=== PATIENT | female | born 1980 | race Caucasian/White ===

== ENCOUNTER 2022-03-14 04:10 | Day surgery (SDC) | payer OTHER ==
[2022-03-10 10:36] VITALS: BMI 39.0
[2022-03-14] MEDS ORDERED: IBUPROFEN 400 MG TABLET (FP) PO PRN (07:20)
[2022-03-14] MEDS ORDERED: ACETAMINOPHEN 325 MG TABLET (FP) PO PRN (07:20)
[2022-03-14] MEDS ORDERED: DEXAMETHASONE SOD PHOSPHATE 4 MG/1 ML VIAL ONE (09:28)
[2022-03-14] MEDS ORDERED: ONDANSETRON 4 MG/2 ML VIAL ONE (09:28)
[2022-03-14] MEDS ORDERED: KETOROLAC TROMETHAMINE 30 MG/1 ML VIAL ONE (09:28)
[2022-03-14] MEDS ORDERED: PROPOFOL 40 ML ONE (09:29)
[2022-03-14] MEDS ORDERED: ROCURONIUM BROMIDE 50 MG/5 ML SYRINGE ONE (09:30)
[2022-03-14] MEDS ORDERED: MIDAZOLAM HCL 2 MG/2 ML SINGLE DOSE VIAL ONE (09:30)
[2022-03-14] MEDS ORDERED: ONDANSETRON 4 MG/2 ML VIAL IVPUSH PRN (09:50)
[2022-03-14] MEDS ORDERED: oxyCODONE HCL 5 MG TABLET PO PRN ×2 (09:50)
[2022-03-14] MEDS ORDERED: CLINDAMYCIN 600MG PREMIX IVPB 600 MG/50 ML BAG IVPB ONE (10:00)
[2022-03-14] MEDS ORDERED: LACTATED RINGERS SOLUTION 1,000 ML IV SCH (10:00)
[2022-03-14] MEDS ORDERED: BUPIVACAINE HCL/PF 0.5% (5MG/ML) 10 ML VIAL ONE (10:14)
[2022-03-14] MEDS ORDERED: CLINDAMYCIN 600 MG PREMIX BAG IVPB ONE (10:15)
[2022-03-14] MEDS ORDERED: NEOSTIGMINE METHYLSULFATE 0.5 MG/ML - 10 ML MDV ONE (10:21)
[2022-03-14] MEDS ORDERED: BUPIVACAINE HCL/PF 0.5% (5MG/ML) 10 ML VIAL IJ ONE (10:34)
[2022-03-14 12:31] VITALS: RESP 20
[2022-03-14 15:34] VITALS: BP 140/82; PULSE 78; TEMP 97.3
== END 2022-03-14 14:40 | disposition home or self-care (01) ==
LOC: JASU-SURG 04:10
PROVIDERS: ATTEND Obstetrics & Gynecology
PROC: 0UT74ZZ Resection of Bilateral Fallopian Tubes, Percutaneous Endoscopic Approach (ICD-10-PCS; principal; 2022-03-14 10:30)
PROC: 0UB98ZZ Excision of Uterus, Via Natural or Artificial Opening Endoscopic (ICD-10-PCS; 2022-03-14 10:30)
PROC: 0UDB8ZX Extraction of Endometrium, Via Natural or Artificial Opening Endoscopic, Diagnostic (ICD-10-PCS; 2022-03-14 10:30)
DX: Z30.2 Encounter for sterilization (principal); D25.0 Submucous leiomyoma of uterus
CPT/HCPCS: 81025; 88302-TC; 88305-TC; 94760

== ENCOUNTER 2022-11-28 10:00 | Inpatient (IN) | payer OTHER ==
[2022-11-28 10:15] VITALS: BMI 39.2
[2022-11-28] MEDS ORDERED: DEXAMETHASONE SOD PHOSPHATE 10 MG/1 ML VIAL IVPUSH ONE (10:30)
[2022-11-28] MEDS ORDERED: ALBUTEROL SO4 2.5/IPRATROPIUM 0.5 INH SOL 3 ML VIAL.NEB. NEB ONE ×3 (10:30→23:15)
[2022-11-28] MEDS ORDERED: DEXAMETHASONE SOD PHOSPHATE 10 MG/1 ML VIAL ONE (10:39)
[2022-11-28 10:49] LABS: HEMATOCRIT 25.4 % (32.4-45.2); HEMOGLOBIN 7.3 GM/dL (10.7-15.3); MCHC 28.7 g/dl (32.0-36.0); MEAN CELL VOLUME 57.3 fl (80-96); PLATELET COUNT 276 10^3/uL (134-434); RBC 4.44 M/mm3 (3.60-5.2); WHITE BLOOD COUNT 7.9 K/mm3 (4.0-10.0)
[2022-11-28 10:50] LABS: MCH 16.5 pg (25.7-33.7)
[2022-11-28 10:52] LABS: VENOUS BASE EXCESS -1.2 mmol/L (-2-2); VENOUS O2 SATURATION 51.6 % (70-80); VENOUS PCO2 44.8 mmHg (38-52); VENOUS PH 7.354 (7.310-7.410)
[2022-11-28 10:57] LABS: INR 1.37 (0.83-1.09); PROTHROMBIN TIME (PATIENT) 15.8 SEC (9.7-13.0)
[2022-11-28 11:00] LABS: ACTIVATED PTT 29.7 SECONDS (25.2-36.5)
[2022-11-28 11:11] LABS: POTASSIUM 3.3 mmol/L (3.5-5.1)
[2022-11-28 11:13] LABS: CALCIUM 8.6 mg/dL (8.5-10.1)
[2022-11-28 11:14] LABS: ALBUMIN 2.8 g/dl (3.4-5.0); BLOOD UREA NITROGEN 20.5 mg/dL (7-18)
[2022-11-28 11:18] LABS: BILIRUBIN,TOTAL 0.7 mg/dL (0.2-1); TOT PROT 6.6 g/dl (6.4-8.2)
[2022-11-28 11:35] LABS: ANISOCYTOSIS 3+; MACROCYTOSIS 0; OVALOCYTE 1+; TEAR DROP CELLS 1+
[2022-11-28] MEDS ORDERED: POTASSIUM CHLORIDE TABS 20 MEQ TABLET.ER (FP) PO ONE ×2 (13:44→13:48)
[2022-11-28] MEDS: guaiFENesin/D-M SUGAR-FREE/ACLHOL-FREE (200 MG/10 MG) 5 ML PO PRN (20:04)
[2022-11-28] MEDS: OSELTAMIVIR PHOSPHATE 75 MG CAPSULE PO SCH (21:04)
[2022-11-28] MEDS: ALBUTEROL SULFATE 0.021% (0.63 MG/3 ML) VIAL.NEB NEB PRN (23:21)
[2022-11-29] MEDS: guaiFENesin/D-M SUGAR-FREE/ACLHOL-FREE (200 MG/10 MG) 5 ML PO PRN ×3 (02:45→21:07)
[2022-11-29 07:55] LABS: BASO % 0.2 % (0-2.0); HEMATOCRIT 28.1 % (32.4-45.2); HEMOGLOBIN 8.3 GM/dL (10.7-15.3); LYMPH % 7.9 % (8-40); MCHC 29.6 g/dl (32.0-36.0); MEAN CELL VOLUME 61.4 fl (80-96); MEAN PLT VOLUME 8.2 fl (7.5-11.1); MONO % 8.4 % (3.8-10.2); NEUT % 83.5 % (42.8-82.8); PLATELET COUNT 306 10^3/uL (134-434); RBC 4.57 M/mm3 (3.60-5.2); RDW 25.7 % (11.6-15.6); WHITE BLOOD COUNT 10.3 K/mm3 (4.0-10.0)
[2022-11-29 08:02] LABS: MCH 18.2 pg (25.7-33.7)
[2022-11-29 08:10] LABS: POTASSIUM 4.7 mmol/L (3.5-5.1)
[2022-11-29 08:18] LABS: ALBUMIN 2.6 g/dl (3.4-5.0); CALCIUM 9.1 mg/dL (8.5-10.1)
[2022-11-29 08:19] LABS: BLOOD UREA NITROGEN 16.2 mg/dL (7-18); CREATININE 0.7 mg/dL (0.55-1.3); PHOSPHOROUS 3.4 mg/dL (2.5-4.9)
[2022-11-29 08:21] LABS: BILIRUBIN,TOTAL 0.5 mg/dL (0.2-1)
[2022-11-29 08:22] LABS: TOT PROT 6.6 g/dl (6.4-8.2)
[2022-11-29] MEDS ORDERED: IRON SUCROSE INJECTION 200 MG in SODIUM CHLORIDE 90 ML IVPB ONE (10:00)
[2022-11-29] MEDS: OSELTAMIVIR PHOSPHATE 75 MG CAPSULE PO SCH ×2 (10:30→21:06)
[2022-11-29] MEDS: levoFLOXacin 750 MG TABLET PO SCH (10:30)
[2022-11-29] MEDS ORDERED: CODEINE SO4 30 MG TABLET PO PRN (12:43)
[2022-11-29] MEDS: CODEINE SO4 30 MG TABLET PO PRN ×2 (16:11→21:07)
[2022-11-29] MEDS ORDERED: ALBUTEROL SO4 2.5/IPRATROPIUM 0.5 INH SOL 3 ML VIAL.NEB. NEB ONE (19:50)
[2022-11-29] MEDS: ALBUTEROL SULFATE 0.021% (0.63 MG/3 ML) VIAL.NEB NEB PRN (20:17)
[2022-11-29] MEDS: INSULIN SLIDING SCALE (NOVOLOG) 1 VIAL SQ SCH (21:42)
[2022-11-30] MEDS: guaiFENesin/D-M SUGAR-FREE/ACLHOL-FREE (200 MG/10 MG) 5 ML PO PRN ×2 (06:12→12:27)
[2022-11-30] MEDS: CODEINE SO4 30 MG TABLET PO PRN ×3 (06:12→19:51)
[2022-11-30] MEDS: INSULIN SLIDING SCALE (NOVOLOG) 1 VIAL SQ SCH ×4 (06:19→21:03)
[2022-11-30 07:46] LABS: BASO % 0.1 % (0-2.0); HEMATOCRIT 26.7 % (32.4-45.2); LYMPH % 21.2 % (8-40); MEAN CELL VOLUME 60.5 fl (80-96); MEAN PLT VOLUME 8.2 fl (7.5-11.1); MONO % 8.6 % (3.8-10.2); NEUT % 70.1 % (42.8-82.8); PLATELET COUNT 292 10^3/uL (134-434); RBC 4.41 M/mm3 (3.60-5.2); RDW 23.6 % (11.6-15.6); WHITE BLOOD COUNT 8.3 K/mm3 (4.0-10.0)
[2022-11-30 08:04] LABS: CALCIUM 8.6 mg/dL (8.5-10.1)
[2022-11-30 08:05] LABS: ALBUMIN 2.3 g/dl (3.4-5.0); BLOOD UREA NITROGEN 16.7 mg/dL (7-18)
[2022-11-30 08:08] LABS: CREATININE 0.7 mg/dL (0.55-1.3)
[2022-11-30 08:10] LABS: BILIRUBIN,TOTAL 0.5 mg/dL (0.2-1)
[2022-11-30 08:19] LABS: MCH 18.2 pg (25.7-33.7)
[2022-11-30] MEDS: OSELTAMIVIR PHOSPHATE 75 MG CAPSULE PO SCH ×2 (09:26→21:02)
[2022-11-30] MEDS: DOCUSATE SODIUM 100 MG CAPSULE (FP) PO SCH (09:26)
[2022-11-30] MEDS: levoFLOXacin 750 MG TABLET PO SCH (09:26)
[2022-11-30] MEDS ORDERED: FAMOTIDINE 20 MG TABLET PO ONE (14:05)
[2022-11-30 16:19] LABS: EPI CELLS 18 /uL (0-25.1); HYALINE CASTS 1 /uL (0-3.1); URINE APPEARANCE CLEAR; URINE BACTERIA 76 /uL (0-1359); URINE BILIRUBIN NEGATIVE (NEGATIVE); URINE COLOR YELLOW; URINE GLUCOSE (UA) NEGATIVE (NEGATIVE); URINE KETONE NEGATIVE (NEGATIVE); URINE LEUK ESTERASE NEGATIVE (NEGATIVE); URINE NITRITE NEGATIVE (NEGATIVE); URINE PROTEIN 2+ (NEGATIVE); URINE RBC 22 /uL (0-23.9); URINE WBC 26 /uL (0-25.8)
[2022-12-01] MEDS: CODEINE SO4 30 MG TABLET PO PRN ×3 (06:11→17:45)
[2022-12-01] MEDS: guaiFENesin/D-M SUGAR-FREE/ACLHOL-FREE (200 MG/10 MG) 5 ML PO PRN ×3 (06:11→17:45)
[2022-12-01] MEDS: INSULIN SLIDING SCALE (NOVOLOG) 1 VIAL SQ SCH ×4 (06:17→21:25)
[2022-12-01 07:26] LABS: HEMATOCRIT 25.9 % (32.4-45.2); MCHC 30.8 g/dl (32.0-36.0); MEAN CELL VOLUME 59.6 fl (80-96); MEAN PLT VOLUME 7.7 fl (7.5-11.1); PLATELET COUNT 302 10^3/uL (134-434); RBC 4.35 M/mm3 (3.60-5.2); RDW 22.4 % (11.6-15.6); WHITE BLOOD COUNT 4.6 K/mm3 (4.0-10.0)
[2022-12-01 07:40] LABS: MCH 18.3 pg (25.7-33.7)
[2022-12-01 07:52] LABS: POTASSIUM 3.9 mmol/L (3.5-5.1)
[2022-12-01 07:59] LABS: BLOOD UREA NITROGEN 12.3 mg/dL (7-18)
[2022-12-01 08:02] LABS: CALCIUM 8.3 mg/dL (8.5-10.1); CREATININE 0.6 mg/dL (0.55-1.3)
[2022-12-01] MEDS: OSELTAMIVIR PHOSPHATE 75 MG CAPSULE PO SCH ×2 (09:38→21:26)
[2022-12-01] MEDS: DOCUSATE SODIUM 100 MG CAPSULE (FP) PO SCH (09:38)
[2022-12-01] MEDS: levoFLOXacin 750 MG TABLET PO SCH (09:38)
[2022-12-01] MEDS ORDERED: LISINOPRIL 10 MG TABLET PO SCH (10:00)
[2022-12-01] MEDS ORDERED: diphenhydrAMINE HCL 25 MG CAPSULE (FP) PO PRN (15:26)
[2022-12-01] MEDS: FLUTICASONE PROP 0.05% 16 GM NASAL SPRAY NS SCH (21:28)
[2022-12-02] MEDS: INSULIN SLIDING SCALE (NOVOLOG) 1 VIAL SQ SCH ×4 (06:08→21:44)
[2022-12-02 07:04] LABS: BLOOD UREA NITROGEN 8.5 mg/dL (7-18); CALCIUM 7.9 mg/dL (8.5-10.1); POTASSIUM 3.6 mmol/L (3.5-5.1)
[2022-12-02 07:07] LABS: THYROID STIM IMMUNOGLOBULIN <0.10 IU/L (0.00-0.55)
[2022-12-02 07:08] LABS: CREATININE 0.6 mg/dL (0.55-1.3)
[2022-12-02] MEDS: OSELTAMIVIR PHOSPHATE 75 MG CAPSULE PO SCH ×2 (10:41→21:39)
[2022-12-02] MEDS: levoFLOXacin 750 MG TABLET PO SCH (10:41)
[2022-12-02] MEDS: DOCUSATE SODIUM 100 MG CAPSULE (FP) PO SCH (10:41)
[2022-12-02] MEDS: guaiFENesin/D-M SUGAR-FREE/ACLHOL-FREE (200 MG/10 MG) 5 ML PO PRN (10:42)
[2022-12-02] MEDS: FLUTICASONE PROP 0.05% 16 GM NASAL SPRAY NS SCH ×2 (10:42→21:38)
[2022-12-02] MEDS: ALBUTEROL SO4 2.5/IPRATROPIUM 0.5 INH SOL 3 ML VIAL.NEB. NEB SCH ×2 (15:10→20:31)
[2022-12-02] MEDS ORDERED: INSULIN SLIDING SCALE (NOVOLOG) 1 VIAL SQ ONE (17:30)
[2022-12-02] MEDS: CODEINE SO4 30 MG TABLET PO PRN (21:39)
[2022-12-03] MEDS: INSULIN SLIDING SCALE (NOVOLOG) 1 VIAL SQ SCH ×2 (06:13→11:28)
[2022-12-03 07:10] LABS: HEMOGLOBIN 8.5 GM/dL (10.7-15.3); MCHC 30.3 g/dl (32.0-36.0); MEAN CELL VOLUME 60.7 fl (80-96); PLATELET COUNT 391 10^3/uL (134-434); RBC 4.62 M/mm3 (3.60-5.2); RDW 26.1 % (11.6-15.6); WHITE BLOOD COUNT 5.8 K/mm3 (4.0-10.0)
[2022-12-03 07:16] LABS: MCH 18.4 pg (25.7-33.7)
[2022-12-03 07:37] LABS: POTASSIUM 3.9 mmol/L (3.5-5.1)
[2022-12-03 07:40] LABS: BLOOD UREA NITROGEN 7.2 mg/dL (7-18); CALCIUM 8.2 mg/dL (8.5-10.1)
[2022-12-03 07:43] LABS: CREATININE 0.6 mg/dL (0.55-1.3)
[2022-12-03] MEDS: ALBUTEROL SO4 2.5/IPRATROPIUM 0.5 INH SOL 3 ML VIAL.NEB. NEB SCH ×2 (08:23→12:17)
[2022-12-03] MEDS: FLUTICASONE PROP 0.05% 16 GM NASAL SPRAY NS SCH (09:46)
[2022-12-03] MEDS: OSELTAMIVIR PHOSPHATE 75 MG CAPSULE PO SCH (09:46)
[2022-12-03] MEDS: guaiFENesin/D-M SUGAR-FREE/ACLHOL-FREE (200 MG/10 MG) 5 ML PO PRN (09:46)
[2022-12-03] MEDS: DOCUSATE SODIUM 100 MG CAPSULE (FP) PO SCH (09:46)
[2022-12-03] MEDS ORDERED: ENOXAPARIN NA (PORCINE) 40 MG/0.4 ML DISP.SYRIN SQ SCH (10:00)
[2022-12-03 10:56] VITALS: BP 136/83; RESP 18; TEMP 97.8
[2022-12-03 12:23] VITALS: PULSE 107
== END 2022-12-03 14:30 | disposition home or self-care (01) | DRG 139 ==
LOC: JER 10:00 → JERBED 11:05 → J4S 15:32
PROVIDERS: ADMIT Internal Medicine; ATTEND Internal Medicine
PROC: 30233N1 Transfusion of Nonautologous Red Blood Cells into Peripheral Vein, Percutaneous Approach (ICD-10-PCS; principal; 2022-11-28)
DX: J10.00 Influenza due to other identified influenza virus with unspecified type of pneumonia (principal); J96.01 Acute respiratory failure with hypoxia; D50.9 Iron deficiency anemia, unspecified; K80.20 Calculus of gallbladder without cholecystitis without obstruction; N92.0 Excessive and frequent menstruation with regular cycle; N93.9 Abnormal uterine and vaginal bleeding, unspecified; R73.03 Prediabetes
CPT/HCPCS: 0241U-QW; 36415; 36430; 71045-TC-FY; 71046-TC-FY; 71275-TC; 76830-TC; 80048; 80053; 81003; 82607; 82728; 82746; 82803; 82962; 83036; 83520; 83540; 83550; 83735; 83880; 84100; 84439; 84443; 84445; 84481; 84484; 84703; 85025; 85027; 85610; 85730; 86850; 86900; 86901; 86922; 87040; 87070; 87081; 87205; 93005; 93010; 94010; 94640; 94761; 97116-GP; 97161-GP; 99285-25; J1100; J1756; P9058; Q9967